=== PATIENT | male | born 1990 | race African-American/Black ===

== ENCOUNTER 2016-11-10 22:29 | Emergency (ER) | payer MEDICAID ==
[~2016-11-10] VITALS: Ht 170.2 cm; Wt 84.1 kg
[2016-11-11] MEDS ORDERED: ACETAMINOPHEN/CODEINE 300-30 MG TABLET PO ONE (00:30)
[2016-11-11] MEDS ORDERED: IBUPROFEN 600 MG TABLET PO ONE (00:30)
[2016-11-11 01:11] VITALS: BP 134/85
== END 2016-11-11 01:14 | disposition home or self-care (01) ==
LOC: EMS 22:36
DX: S92.355A Nondisplaced fracture of fifth metatarsal bone, left foot, initial encounter for closed fracture (principal); X58.XXXA Exposure to other specified factors, initial encounter; Y93.89 Activity, other specified; Y92.89 Other specified places as the place of occurrence of the external cause; Y99.8 Other external cause status
CPT/HCPCS: 29515; 29540; 99284